=== PATIENT | female | born 1950 | race Two or more races ===

== ENCOUNTER 2025-05-25 15:28 | Emergency (ER) | payer OTHER ==
[~2025-05-25] VITALS: Ht 157.5 cm; Wt 86.2 kg
[2025-05-25] MEDS ORDERED: ATORVASTATIN CA20 MG (15:55)
[2025-05-25] MEDS ORDERED: TOPROL XL50 M1 (15:55)
[2025-05-25] MEDS ORDERED: CHILDREN'S ASPI81 MG (15:56)
[2025-05-25] MEDS ORDERED: HYDROCHLOROTH12.5 MG (15:56)
[2025-05-25] MEDS ORDERED: VITAMIN B-121000 MC4 (15:56)
[2025-05-25 17:20] LABS: BASO % 0.5 % (0.1-1.2); EOS # 0.04 (0.04-0.54); EOS % 0.5 % (0.7-7.0); LYMPH # 1.20 (1.18-3.74); LYMPH % 16.5 % (19.3-53.1); MEAN PLATELET VOLUME 12.10 fl (9.4-12.4); MONO # 0.41 (0.24-0.82); MONO % 5.6 % (4.7-12.5); NEUT # 5.57 (1.56-6.13); NEUT % 76.6 % (34.0-71.1); RED CELL DISTRIBUTION WIDTH 15.4 % (11.6-14.4)
[2025-05-25 17:35] LABS: URINE APPEARANCE Cloudy; URINE BILIRRUBIN Negative (NEGATIVE); URINE BLOOD Large; URINE COLOR Yellow; URINE GLUCOSE Negative (NEGATIVE); URINE KETONE Negative (NEGATIVE); URINE LEUKOCYTE Small; URINE NITRATE Negative; URINE PROTEIN Negative (NEGATIVE); URINE UROBILINOGEN 0.2 E.U./dl
[2025-05-25 17:39] LABS: URINE EPITHELIAL CELLS 169.8 uL (0.0-38.8); URINE RBC 185.6 uL (0.0-20.8); URINE WBC 39.9 uL (0.0-23.2)
[2025-05-25 17:42] LABS: ALT/SGPT 26.0 U/L (12-78); AST/SGOT 22.0 U/L (15-37); BILIRUBIN TOTAL 0.91 mg/dL (0.3-1.2); BUN CREA RATIO 20.0 (7.0-25.0); CREATININE SERUM 0.87 mg/dL (0.55-1.02); GFR 63.47; GLOBULINA 4.2 G/DL (2.4-3.5); GLUCOSE FASTING 159.0 mg/dL (65-100); OSMOLALITY SERUM 290.0 MOSM/KG (275-295)
[2025-05-25 17:43] LABS: INR 1.03
[2025-05-25 17:46] LABS: TYPE CELLS SQUAMOUS; URINE CAST 0.00 uL (0.0-1.40)
[2025-05-25] MEDS ORDERED: MACROBID 100 M100 MG PO (20:34)
== END 2025-05-25 21:48 | disposition home or self-care (01) ==
LOC: ER 15:28
PROVIDERS: General Practice
DX: N93.8 Other specified abnormal uterine and vaginal bleeding (principal); I10 Essential (primary) hypertension; E78.49 Other hyperlipidemia; N39.0 Urinary tract infection, site not specified; D25.9 Leiomyoma of uterus, unspecified